=== PATIENT | male | born 1990 | race Caucasian/White ===

== ENCOUNTER 2017-05-08 15:51 | Emergency (ER) | payer OTHER, SELFPAY ==
[2017-05-08] VITALS (9 sets, daily range): BP systolic 122–146; BP diastolic 65–89; PULSE 62–100; RESP 6–16; TEMP 37; O2SAT 98–100; BMI 22.9
--- NOTE | 2017-05-08 16:01 | RAD_ITS ---
STUDY: X-RAY - LEFT HAND REASON FOR EXAM: Male, 26 years old. Cut fingers with Saw TECHNIQUE: 3 view(s) of the hand. The patient's hand is flexed on each image partially obscuring the phalanges. COMPARISON: None. FINDINGS: Normal radiocarpal articulation. Normal distal radioulnar joint. Normal visualized carpal bones. Normal carpal articulations Normal carpometacarpal articulation of the thumb. Normal second through fifth carpometacarpal joints. Normal metacarpi. Normal metacarpophalangeal joint of the thumb. Normal interphalangeal joint of the thumb. Normal proximal and distal phalanges of the thumb. Normal metacarpophalangeal joints of the second through fifth fingers. There is been amputation of the second digit at the proximal phalanx. There is accompanying soft tissue irregularity and deformity. There is a suggestion of possible bony fragment within the soft tissues or underlying the first distal phalanx. There is quite a bit of overlap with the first distal phalanx and the phalanges on each image. RAD/Hand Min 3 Views IMPRESSION: Amputation of the second digit at the proximal phalanx. Limited study of the first distal phalanx may be a bony fragment overlying or within the soft tissues of the first digit. Electronically Signed: Janessa Stahl MD at 16:50 EDT Tel , Service support ,
[2017-05-08] MEDS: Diphth,Pertuss(Acell),Tet Vac 0.5 ML Vial IM (16:11)
[2017-05-08] MEDS: Cefazolin 1 GM/50 ML BAG IV (16:11)
[2017-05-08] MEDS: HYDROmorphone 1 MG/ML Syringe IV (16:11)
--- NOTE | 2017-05-08 17:10 | ED.VISSUMM ---
- ER Visit Summary Date of Service: 05/08/17 Chief Complaint: Finger amputation History of Present Illness: The patient is a [address] Musa. He is right-hand dominant. He got his left hand caught in a table saw. Reports that he has pain is 10 out of 10 severity and throbbing. He has never had a tetanus shot. Physical Examination: Vitals: Stable. Afebrile. General: Well-nourished and well-developed. Head: Normocephalic atraumatic. Neck: Supple, no lymphadenopathy. No JVD. Nontender. Cardiovascular: Regular rate and rhythm. No murmurs. Respiratory: No respiratory distress. Clear to auscultation bilaterally. Abdominal: Soft, nontender, nondistended, normal bowel sounds. No guarding, rebound, or peritoneal signs. Back: Nontender. Left hand: The index finger is amputated at the most proximal portion of the proximal phalanx. There is a laceration across the dorsum of the third and fourth MCP joints. He has less than 2 second capillary refill and normal sensation light touch distal to these. Skin: Normal color, no rash. Neurologic: Alert and oriented ?3. Cranial nerves II through XII are intact. Normal strength and sensation. Psych: Normal affect. Test Results: X-ray shows amputation of the proximal portion of the proximal phalanx of the second finger. The third and fourth fingers are not involved. Emergency Department Course and Treatment: Patient had an IV placed. He was given IV Ancef, Dilaudid, and propofol. He had his tetanus updated. Patient had procedural sedation undertaken with propofol. His wound was then cleansed with chlorhexidine soap. It was irrigated with a liter of normal saline. He then had nonadherent gauze placed, ABD pads, 4 x 4's, and a volar splint. He tolerated this well. Treatment Plan: Patient was discussed with Dr. Robbins, a hand surgeon from [facility], who states that he would not be able to get time in the operating room until midnight. He asked that the patient have the wound washed out and be placed in a splint. He will taken to the operating room tomorrow morning at 8 AM. Patient and family were happy with this plan. Disposition: To home in improved condition. Impression: 1. Left second finger amputation at the level of the MCP joint. 2. Laceration dorsum left hand, 5 cm, with extensor tendon involvement. 3. Procedural sedation. 4. Volar splint, fabricated. This note was generated with [employer] dictation software. It may contain incorrect words, spelling, and punctuation that were not noted in review of the chart prior to signing ED Disposition - Plan for ED Patient: Chief Complaint: Upper Extremity Injury Instructions: ED Fx Finger Open Prescriptions: Oxycodone HCl/Acetaminophen [Percocet 5/325] 1 tablet PO Q6H PRN PRN 5 Days #20 tablet PRN Reason: Pain Cephalexin [Keflex] 500 mg PO Q6 #40 capsule Additional Instructions: Go to the [facility] surgical center for surgery tomorrow morning at 8 AM. The address is [address] [place] [address] [address], [place] [address] Dr. Robbins is the surgeon and his number is . Don't eat or drink anything after midnight.
--- NOTE | 2017-05-08 17:13 | ED.DCSUM_ITS ---
- ER Visit Summary Date of Service: 05/08/17 Chief Complaint: Finger amputation History of Present Illness: The patient is a [address] Musa. He is right-hand dominant. He got his left hand caught in a table saw. Reports that he has pain is 10 out of 10 severity and throbbing. He has never had a tetanus shot. Physical Examination: Vitals: Stable. Afebrile. General: Well-nourished and well-developed. Head: Normocephalic atraumatic. Neck: Supple, no lymphadenopathy. No JVD. Nontender. Cardiovascular: Regular rate and rhythm. No murmurs. Respiratory: No respiratory distress. Clear to auscultation bilaterally. Abdominal: Soft, nontender, nondistended, normal bowel sounds. No guarding, rebound, or peritoneal signs. Back: Nontender. Left hand: The index finger is amputated at the most proximal portion of the proximal phalanx. There is a laceration across the dorsum of the third and fourth MCP joints. He has less than 2 second capillary refill and normal sensation light touch distal to these. Skin: Normal color, no rash. Neurologic: Alert and oriented ?3. Cranial nerves II through XII are intact. Normal strength and sensation. Psych: Normal affect. Test Results: X-ray shows amputation of the proximal portion of the proximal phalanx of the second finger. The third and fourth fingers are not involved. Emergency Department Course and Treatment: Patient had an IV placed. He was given IV Ancef, Dilaudid, and propofol. He had his tetanus updated. Patient had procedural sedation undertaken with propofol. His wound was then cleansed with chlorhexidine soap. It was irrigated with a liter of normal saline. He then had nonadherent gauze placed, ABD pads, 4 x 4's, and a volar splint. He tolerated this well. Treatment Plan: Patient was discussed with Dr. Robbins, a hand surgeon from [facility], who states that he would not be able to get time in the operating room until midnight. He asked that the patient have the wound washed out and be placed in a splint. He will taken to the operating room tomorrow morning at 8 AM. Patient and family were happy with this plan. Disposition: To home in improved condition. Impression: 1. Left second finger amputation at the level of the MCP joint. 2. Laceration dorsum left hand, 5 cm, with extensor tendon involvement. 3. Procedural sedation. 4. Volar splint, fabricated. This note was generated with [employer] dictation software. It may contain incorrect words, spelling, and punctuation that were not noted in review of the chart prior to signing ED Disposition - Plan for ED Patient: Chief Complaint: Upper Extremity Injury Instructions: ED Fx Finger Open Prescriptions: Oxycodone HCl/Acetaminophen [Percocet 5/325] 1 tablet PO Q6H PRN PRN 5 Days #20 tablet PRN Reason: Pain Cephalexin [Keflex] 500 mg PO Q6 #40 capsule Additional Instructions: Go to the [facility] surgical center for surgery tomorrow morning at 8 AM. The address is [address] [place] [address] [address], [place] [address] Dr. Robbins is the surgeon and his number is . Don't eat or drink anything after midnight.
[2017-05-08] MEDS: Propofol 200 MG/20 ML Vial IV BOLUS (18:04)
== END 2017-05-08 18:31 | disposition home or self-care (01) ==
PROVIDERS: Emergency Provider Emergency Medicine; Family Provider Family Medicine; PCP Family Medicine
DX: S68.111A Complete traumatic metacarpophalangeal amputation of left index finger, initial encounter (principal); S66.329A Laceration of extensor muscle, fascia and tendon of unspecified finger at wrist and hand level, initial encounter; W27.0XXA Contact with workbench tool, initial encounter; Y93.9 Activity, unspecified; Y92.9 Unspecified place or not applicable
CPT/HCPCS: 29125; 73130; 90715; 96365; 96375; 99152; 99285; J7030

== ENCOUNTER 2018-04-27 11:29 | Emergency (ER) | payer OTHER, SELFPAY ==
[2018-04-27 11:30] VITALS: BP 137/89; PULSE 72; RESP 16; TEMP 36.8; O2SAT 98; BMI 24.5
[2018-04-27 12:14] VITALS: BP 128/80; PULSE 70; RESP 14; O2SAT 98
--- NOTE | 2018-04-27 12:43 | RAD_ITS ---
STUDY: X-RAY - LEFT HAND, ATTENTION THIRD FINGER REASON FOR EXAM: Male, 27 years old. Soft tissue laceration. TECHNIQUE: 3 view(s) of the finger were obtained. COMPARISON: None. FINDINGS: Normal metacarpal head. Normal metacarpophalangeal joint. Normal proximal phalanx. Normal middle phalanx. Normal distal phalanx. Normal proximal interphalangeal joint. Normal distal interphalangeal joint. Soft tissue laceration overlying the volar aspect of the distal aspect of the finger. No radiopaque foreign body is seen. The patient is status post amputation of the second digit. RAD/Finger(s) Min 2 Views IMPRESSION: Soft tissue laceration overlying the distal phalanx of the third digit. Status post amputation of the index finger. Electronically Signed: Asaf Arredondo, at 14:35 EST , Service support ,
[2018-04-27 16:27] VITALS: BP 142/80; PULSE 75; RESP 14; O2SAT 98
--- NOTE | 2018-04-27 16:31 | ED.VIS.GEN ---
History of Present Illness Chief Complaint: Laceration Informant: Patient Onset: Today - JPTA Context: Sudden Onset - table saw vs. finger Timing: Continuous Quality: sore Location: left long finger Current Severity: Moderate Maximum Severity: Moderate Worsened by: palpation, movement Relieved by: remaining still Associated Symptoms: tingling in fingertip Narrative: [employer] patient using a table saw and injured his left long finger. Right hand dominant. Prior loss of index finger on his left hand from similar injury. Last tetanus was last year. Past Medical History - Allergies and Home Meds Allergies/Adverse Reactions: Allergies No Known Allergies Allergy (Verified 04/27/18 11:33) Primary Care Physician: Erwin Musa DO [Primary Care Provider] - Past Medical History: None Lives: With Family Smoking Status: Never smoker Review of Systems General: Denies: Chills, Fever Musculoskeletal: Reports: Extremity Pain Skin: Reports: Wounds Neurological: Reports: Parasthesia. Denies: Weakness Physical Exam Vital Signs/Narrative: Vital Signs Pulse Resp BP Pulse Ox 04/27/18 16:27 75 14 142/80 H 98 Inital Vital Signs reviewed: Yes General: Well nourished, Well developed, No Acute Distress Head: Normocephalic, Atraumatic Eyes: Perrl, EOMI Extremities: Tenderness - Distal phalanx of left long finger, which has complex stellate laceration. Nail is intact, nailbed intact, but laceration does go up to the radial aspect of the nail and involves the tissues right along the side of it but does not involve the cuticle or nail root. Nailbed does not appear to be involved. FDS is intact, FDP function appears intact and strong against resistance. After anesthetized, the FDP tendon is visible and appears to have minor injury to it but he is able to pull strong against resistance. Skin: Trauma - Macerated left long fingertip with a stellate complex laceration in multiple directions including flaps and a small amount of tissue loss. Total length is approximately 7 cm. Bone is not visible, there is no obvious deformity but this is limited due to the depth of the wound and trauma to the subcutaneous tissues. The fingertip itself is not intact so neurologic exam at that area is limited. Neurological: Alert, Oriented x3, Cranial nerves II-XII grossly intact, Normal Strength, Normal Sensation, Normal Gait Psychological: Normal affect, Normal Mood Diagnostic/Tx/Re-eval Clinical Impression(s) from Imaging Studies Finger X-Ray 04/27/18 12:43 IMPRESSION: Soft tissue laceration overlying the distal phalanx of the third digit. Status post amputation of the index finger. Electronically Signed: Asaf Arredondo, at 14:35 EST , Service support , - Medical Decision Making No fracture on x-ray. Laceration was repaired. A Tourni-cot was used for less than an hour. He will be placed in a splint because of the tendon injury. It did not appear to require surgical repair or suturing. Plastics is not available for discussion, but he will be referred to them for outpatient follow-up. Placed on cephalexin for infection prophylaxis. He has analgesics at home that he can use if needed. Procedures - Lacerations left long finger Length: 7 cm Depth: Tendon Shape: Stellate Prep: Sterile Conditions, Chlorhexadine Laceration repair: Debrideded - 0.5 cm squared skin, Digital block, Irrigated - and soaked, Lidocaine, Skin sutures Irrigated (ml): 150 Number of Sutures/[place]: 17 Suture Information: Ethilon, Simple, 4-0 Comment: multiple flaps. one help down w/ long suture over top, it was macerated and impossible to hold suture but had perfused dermis attached. complicated repair. single layer. one suture through nail and nail bed to hold paranychial skin in place. ED Disposition - Plan for ED Patient: Disposition: Home or Assisted Living Diagnosis: Laceration of left middle finger w/o foreign body with damage to nail, Injury of flexor tendon of left hand Instructions: ED Laceration Hand, Treating Flexor Tendon Lacerations Prescriptions: Cephalexin [Keflex] 500 mg PO TID #21 cap Referrals: Billy Ware MD [STAFF PHYSICIAN] - (next week -- call for appt)
--- NOTE | 2018-04-27 16:36 | ED.DCSUM_ITS ---
History of Present Illness Chief Complaint: Laceration Informant: Patient Onset: Today - JPTA Context: Sudden Onset - table saw vs. finger Timing: Continuous Quality: sore Location: left long finger Current Severity: Moderate Maximum Severity: Moderate Worsened by: palpation, movement Relieved by: remaining still Associated Symptoms: tingling in fingertip Narrative: [employer] patient using a table saw and injured his left long finger. Right hand dominant. Prior loss of index finger on his left hand from similar injury. Last tetanus was last year. Past Medical History - Allergies and Home Meds Allergies/Adverse Reactions: Allergies No Known Allergies Allergy (Verified 04/27/18 11:33) Primary Care Physician: Erwin Musa DO [Primary Care Provider] - Past Medical History: None Lives: With Family Smoking Status: Never smoker Review of Systems General: Denies: Chills, Fever Musculoskeletal: Reports: Extremity Pain Skin: Reports: Wounds Neurological: Reports: Parasthesia. Denies: Weakness Physical Exam Vital Signs/Narrative: Vital Signs Pulse Resp BP Pulse Ox 04/27/18 16:27 75 14 142/80 H 98 Inital Vital Signs reviewed: Yes General: Well nourished, Well developed, No Acute Distress Head: Normocephalic, Atraumatic Eyes: Perrl, EOMI Extremities: Tenderness - Distal phalanx of left long finger, which has complex stellate laceration. Nail is intact, nailbed intact, but laceration does go up to the radial aspect of the nail and involves the tissues right along the side of it but does not involve the cuticle or nail root. Nailbed does not appear to be involved. FDS is intact, FDP function appears intact and strong against resistance. After anesthetized, the FDP tendon is visible and appears to have minor injury to it but he is able to pull strong against resistance. Skin: Trauma - Macerated left long fingertip with a stellate complex laceration in multiple directions including flaps and a small amount of tissue loss. Total length is approximately 7 cm. Bone is not visible, there is no obvious deformity but this is limited due to the depth of the wound and trauma to the subcutaneous tissues. The fingertip itself is not intact so neurologic exam at that area is limited. Neurological: Alert, Oriented x3, Cranial nerves II-XII grossly intact, Normal Strength, Normal Sensation, Normal Gait Psychological: Normal affect, Normal Mood Diagnostic/Tx/Re-eval Clinical Impression(s) from Imaging Studies Finger X-Ray 04/27/18 12:43 IMPRESSION: Soft tissue laceration overlying the distal phalanx of the third digit. Status post amputation of the index finger. Electronically Signed: Asaf Arredondo, at 14:35 EST , Service support , - Medical Decision Making No fracture on x-ray. Laceration was repaired. A Tourni-cot was used for less than an hour. He will be placed in a splint because of the tendon injury. It did not appear to require surgical repair or suturing. Plastics is not avai lable for discussion, but he will be referred to them for outpatient follow-up. Placed on cephalexin for infection prophylaxis. He has analgesics at home that he can use if needed. Procedures - Lacerations left long finger Length: 7 cm Depth: Tendon Shape: Stellate Prep: Sterile Conditions, Chlorhexadine Laceration repair: Debrideded - 0.5 cm squared skin, Digital block, Irrigated - and soaked, Lidocaine, Skin sutures Irrigated (ml): 150 Number of Sutures/[place]: 17 Suture Information: Ethilon, Simple, 4-0 Comment: multiple flaps. one help down w/ long suture over top, it was macerated and impossible to hold suture but had perfused dermis attached. complicated repair. single layer. one suture through nail and nail bed to hold paranychial skin in place. ED Disposition - Plan for ED Patient: Disposition: Home or Assisted Living Diagnosis: Laceration of left middle finger w/o foreign body with damage to nail, Injury of flexor tendon of left hand Instructions: ED Laceration Hand, Treating Flexor Tendon Lacerations Prescriptions: Cephalexin [Keflex] 500 mg PO TID #21 cap Referrals: Billy Ware MD [STAFF PHYSICIAN] - (next week -- call for appt)
[2018-04-27 16:49] VITALS: BP 128/78; PULSE 70; RESP 14; O2SAT 98
[2018-04-27] MEDS: Cephalexin 250 MG Capsule 500 MG PO (16:53)
== END 2018-04-27 16:55 | disposition home or self-care (01) ==
PROVIDERS: Emergency Provider Emergency Medicine; Family Provider Family Medicine; PCP Family Medicine
DX: S66.123A Laceration of flexor muscle, fascia and tendon of left middle finger at wrist and hand level, initial encounter (principal); S61.313A Laceration without foreign body of left middle finger with damage to nail, initial encounter; W29.8XXA Contact with other powered hand tools and household machinery, initial encounter; Y93.9 Activity, unspecified; Y92.9 Unspecified place or not applicable; Y99.9 Unspecified external cause status
CPT/HCPCS: 12042; 73140; 99283